=== PATIENT | female | born 1970 | race Caucasian/White ===

== ENCOUNTER 2016-11-29 12:42 | Observation (INO) | payer OTHER ==
[2016-11-29] MEDS ORDERED: Zofran 4 MG/2 ML VIAL IV PRN (13:47)
[2016-11-29] MEDS ORDERED: TYLENOL 325 MG PO PRN (13:48)
--- NOTE | 2016-11-29 14:31 | XRAY ---
Indication: Cough. Infection. Comparison: May 10, 2012. PA/lateral chest again demonstrates normal heart and lungs. Bony thorax intact again with minimal degenerative changes and minimal scoliosis. Impression: Stable nonacute chest.
--- NOTE | 2016-11-29 14:34 | XRAY ---
Indication: Upset stomach. Nausea and vomiting. Multiple contiguous axial images obtained through the abdomen and pelvis without contrast as ordered. Comparison: November 29, 2011. Lung bases demonstrates minimal inferior lingular and right posterior gutter fibrosis/scarring. Lung bases otherwise clear. Heart is not enlarged. Noncontrasted stomach and bowel loops appear nonobstructed. Minimal sigmoid diverticulosis. Normal appendix. No free fluid/air. Again moderate-sized fatty umbilical hernia slightly more enlarged today. Both kidneys now mild/moderately hydronephrotic with interval enlarging extrarenal pelvis bilaterally. Right renal extrarenal pelvis today measures 5.1 cm in greatest axial dimension, previously 3.5 cm. The left measures 3.1 cm, previously 2.4 cm. No renal calculus or perinephric fluid/stranding. Both ureters are normal course and caliber. Gallbladder contracted without gallstones. Remaining liver, pancreas, spleen, adrenal glands, kidneys, bladder, and uterus appear unremarkable for noncontrast exam. Minimal aortoiliac calcifications without AAA. Osseous structures intact again with minimal degenerative changes throughout the spine. Impression: 1. Hydronephrotic kidneys with interval enlarging extrarenal pelvis bilaterally. No renal calculus. Retrograde pyelogram may yield further information if clinically warranted. 2. Sigmoid diverticulosis without diverticulitis. 2. Interval enlarging fatty umbilical hernia. CT DI 22.37
[2016-11-29 14:40] LABS: Mean Cell Volume 90.9 fl (78-100); Mean Corpuscular Hemoglobin 29.9 pg (26-32); Mean Platelet Volume 10.9 fl (6-9.5); Platelet Count 220 K/mm3 (150-450); Red Blood Count 4.82 M/mm3 (4.1-5.4); White Blood Count 7.5 K/mm3 (4.0-10.5)
[2016-11-29] MEDS: Dextrose 5% -0.45 NaCl 1000 ML 1,000 ML IV SCH (14:51)
[2016-11-29] MEDS: PROTONIX 40 MG IV IV SCH (14:52)
[2016-11-29 14:55] LABS: MAGNESIUM 2.1 mg/dL (1.8-2.4)
[2016-11-29 14:58] LABS: ALBUMIN 3.5 g/dL (3.4-5.0); ALKALINE PHOSPHATASE 80 U/L (46-116); ANION GAP 12.8 MEQ/L (5-15); BILIRUBIN,TOTAL 0.6 mg/dL (0.2-1.0); BLOOD UREA NITROGEN 6 mg/dL (9-20); CHLORIDE 108 mEq/L (98-107); Glucose 83 MG/DL (70-110); Potassium 3.6 mEq/L (3.5-5.1); SGOT/AST 15 U/L (15-37); SGPT/ALT 26 U/L (12-78); SODIUM 142 mEq/L (136-145); Total Protein 6.4 gm/dL (6.4-8.2)
[2016-11-29 17:35] LABS: Collection Type CCMS
[2016-11-29 17:36] LABS: COMPLETE URINE MICROSCOPIC? YES; Epithelial Cells RARE /HPF (FEW)
[2016-11-30] MEDS: Dextrose 5% -0.45 NaCl 1000 ML 1,000 ML IV SCH ×2 (00:41→11:00)
--- NOTE | 2016-11-30 08:30 | PCM.NOTE ---
Date and Time: 11/30/16814 Subjective Assessment: still abdominal pain - Review of Systems Constitutional: No Fever, No Chills Eyes: No Symptoms Ears, Nose, & Throat: No Symptoms Respiratory: No Cough, No Short Of Breath Cardiac: No Chest Pain, No Edema, No Syncope Abdominal/Gastrointestinal: Abdominal Pain, No Nausea, No Vomiting, No Diarrhea Genitourinary Symptoms: No Dysuria Musculoskeletal: No Back Pain, No Neck Pain Skin: No Rash Neurological: No Dizziness, No Focal Weakness, No Sensory Changes Psychological: No Symptoms Endocrine: No Symptoms Hematologic/Lymphatic: No Symptoms Immunological/Allergic: No Symptoms Objective Exam General Appearance: no apparent distress, alert Neurologic Exam: alert, oriented x 3, cooperative, normal mood/affect, nml cerebellar function, sensation nml, No motor deficits Skin Exam: normal color, warm, dry Eye Exam: PERRL, EOMI, eyes nml inspection Ears, Nose, Throat Exam: normal ENT inspection, pharynx normal, moist mucous membranes Neck Exam: normal inspection, non-tender, supple, full range of motion Respiratory Exam: normal breath sounds, lungs clear, No respiratory distress Cardiovascular Exam: regular rate/rhythm, normal heart sounds Gastrointestinal/Abdomen Exam: soft, tenderness, No mass Extremity Exam: normal inspection, normal range of motion Back Exam: normal inspection, normal range of motion, No CVA tenderness, No vertebral tenderness Pelvic Exam: deferred Rectal Exam: deferred OBJECTIVE DATA Vital Signs: Vital Signs - 24 hr Temp Pulse Resp BP Pulse Ox 11/30/16 07:53 98.4 F 72 18 134/65 96 11/30/16 04:00 97.9 F 78 19 107/60 95 11/30/16 00:00 98.0 F 74 18 121/67 97 11/29/16 21:00 98.2 F 76 18 147/78 96 11/29/16 16:30 98.1 F 68 20 132/66 99 11/29/16 14:12 98.1 F 75 20 172/82 97 11/29/16 13:22 98.1 F 75 20 172/82 97 Pain Assessment - Last Documented Pain Intensity 7 Pain Scale Used [facility] Intake and Output: Intake & Output 11/27/16 11/28/16 11/29/16 11/30/16 11:59 11:59 11:59 11:59 Intake Total 2439 Output Total 1400 Balance 1039 Weight 73.074 kg Lab Results: Lab Results-Last 24 Hours 11/29/16 11/29/16 11/29/16 Range/Units 14:15 14:15 14:15 WBC 7.5 (4.0-10.5) K/mm3 RBC 4.82 (4.1-5.4) M/mm3 Hgb 14.4 (12.0-16.0) gm/dl Hct 43.8 (35-47) % MCV 90.9 (78-100) fl MCH 29.9 (26-32) pg MCHC 32.9 (32-36) g/dl RDW 13.0 (11.5-14.0) % Plt Count 220 (150-450) K/mm3 MPV 10.9 H (6-9.5) fl Sodium 142 (136-145) mEq/L Potassium 3.6 (3.5-5.1) mEq/L Chloride 108 H (98-107) mEq/L Carbon Dioxide 25.0 (21-32) mEq/L Anion Gap 12.8 (5-15) MEQ/L BUN 6 L (9-20) mg/dL Creatinine 0.83 (0.55-1.30) mg/dl Estimated GFR > 60 ML/MIN Glucose 83 (70-110) MG/DL Calcium 9.0 (8.5-10.1) mg/dL Magnesium 2.1 (1.8-2.4) mg/dL Total Bilirubin 0.6 (0.2-1.0) mg/dL AST 15 (15-37) U/L ALT 26 (12-78) U/L Alkaline Phosphatase 80 (46-116) U/L Troponin I (0.000-0.056) ng/ml Serum Total Protein 6.4 (6.4-8.2) gm/dL Albumin 3.5 (3.4-5.0) g/dL Lipase 140 (73-393) U/L Ur Collection Type Urine Color (YELLOW) Urine Appearance (CLEAR) Urine pH (5-6) Ur Specific [place] (1.005-1.025) Urine Protein (Negative) Urine Glucose (UA) (NEGATIVE) mg/dL Urine Ketones (NEGATIVE) Urine Nitrite (NEGATIVE) Urine Bilirubin (NEGATIVE) Urine Urobilinogen (0-1) mg/dL Urine WBC (Auto) (NEGATIVE) Urine RBC (Auto) (0-5) Silvino/ul Urine Microscopic RBC (0-2) /HPF Ur Epithelial Cells (FEW) /HPF Stl C. diff Tox B Gene (NEGATIVE) C.difficile 027-NAP1-B1 (NEGATIVE) Specimen Received 11/29/16 11/29/16 11/29/16 Range/Units 14:15 16:51 21:30 WBC (4.0-10.5) K/mm3 RBC (4.1-5.4) M/mm3 Hgb (12.0-16.0) gm/dl Hct (35-47) % MCV (78-100) fl MCH (26-32) pg MCHC (32-36) g/dl RDW (11.5-14.0) % Plt Count (150-450) K/mm3 MPV (6-9.5) fl Sodium (136-145) mEq/L Potassium (3.5-5.1) mEq/L Chloride (98-107) mEq/L Carbon Dioxide (21-32) mEq/L Anion Gap (5-15) MEQ/L BUN (9-20) mg/dL Creatinine (0.55-1.30) mg/dl Estimated GFR ML/MIN Glucose (70-110) MG/DL Calcium (8.5-10.1) mg/dL Magnesium (1.8-2.4) mg/dL Total Bilirubin (0.2-1.0) mg/dL AST (15-37) U/L ALT (12-78) U/L Alkaline Phosphatase (46-116) U/L Troponin I < 0.017 (0.000-0.056) ng/ml Serum Total Protein (6.4-8.2) gm/dL Albumin (3.4-5.0) g/dL Lipase (73-393) U/L Ur Collection Type CCMS Urine Color YELLOW (YELLOW) Urine Appearance CLEAR (CLEAR) Urine pH 7.0 (5-6) Ur Specific [place] 1.010 (1.005-1.025) Urine Protein NEGATIVE (Negative) Urine Glucose (UA) NEGATIVE (NEGATIVE) mg/dL Urine Ketones NEGATIVE (NEGATIVE) Urine Nitrite NEGATIVE (NEGATIVE) Urine Bilirubin NEGATIVE (NEGATIVE) Urine Urobilinogen 0.2 (0-1) mg/dL Urine WBC (Auto) NEGATIVE (NEGATIVE) Urine RBC (Auto) SMALL (0-5) Silvino/ul Urine Microscopic RBC 0-2 (0-2) /HPF Ur Epithelial Cells RARE (FEW) /HPF Stl C. diff Tox B Gene NEGATIVE (NEGATIVE) C.difficile 027-NAP1-B1 PRESUMPTIVE NEGATIVE (NEGATIVE) Specimen Received 11-29-16 9225 Radiology Exams: Radiology Procedures Category Date Time Status ABDOMEN AND PELVIS W/0 CONTRAS [CT] Urgent Exams 11/29/16 13:45 Completed CHEST 2 VIEWS (PA AND LAT) Urgent Exams 11/29/16 13:42 Completed Assessment/Plan (1) Abdominal pain Current Visit: Yes Status: Acute Qualifiers: Abdominal location: generalized Qualified Code(s): R10.84 - Generalized abdominal pain Code(s): R10.9 - UNSPECIFIED ABDOMINAL PAIN (2) Hydronephrosis Current Visit: Yes Status: Acute Qualifiers: Hydronephrosis type: unspecified Qualified Code(s): N13.30 - Unspecified hydronephrosis Code(s): N13.30 - UNSPECIFIED HYDRONEPHROSIS
[2016-11-30] MEDS ORDERED: Zestril 20 MG PO SCH (10:00)
[2016-11-30] MEDS: PROTONIX 40 MG IV IV SCH (10:29)
[2016-11-30 11:57] VITALS: BP 114/59; O2SAT 97
[2016-11-30 12:02] VITALS: PULSE 53
[2016-12-01] MEDS ORDERED: Protonix 40MG Tablet PO SCH (10:00)
[2016-12-01] MEDS ORDERED: Ecotrin 325 MG PO SCH (10:00)
[2016-12-01] MEDS ORDERED: NON-FORMULARY ITEM (Omeprazole 20 Mg [Prilosec 20 Mg] 20 MG) PO SCH (10:00)
[2016-12-01 15:25] LABS: Giardia Antigen EIA Negative (Negative)
== END 2016-11-30 15:15 | disposition home or self-care (01) ==
LOC: MED SURG 12:42
PROVIDERS: ADMIT General Practice; ATTEND General Practice
DX: N13.30 Unspecified hydronephrosis (principal); R10.84 Generalized abdominal pain; I11.0 Hypertensive heart disease with heart failure; I50.9 Heart failure, unspecified; E66.8 Other obesity; M25.50 Pain in unspecified joint; E78.5 Hyperlipidemia, unspecified; E11.9 Type 2 diabetes mellitus without complications; Z79.899 Other long term (current) drug therapy
CPT/HCPCS: 36415; 71020; 74176; 80053; 81000; 83690; 83735; 84484; 85027; 87045; 87046; 87177; 87209; 87335; 87493; 93005; G0378; A9270-GY

== ENCOUNTER 2017-01-13 07:36 | Emergency (ER) | payer OTHER ==
[2017-01-13 07:49] VITALS: O2SAT 98
--- NOTE | 2017-01-13 07:59 | ERPHSYRPT ---
- History of Present Illness Time Seen by Provider: 01/13/17 07:44 Historian: patient Exam Limitations: no limitations Patient Subjective Stated Complaint: rt abd pain sicne 629 Triage Nursing Assessment: sudden onset of rt abd pain with nausea since 629. no oral intake today--cheeseburger and fries last night. normal bm this am. denies pain with urination. skin warma dn dry Physician History: Pt. with previous admission in 11/22 for abdominal pain, vomiting and diarrhea. Had CT at that time and showed R hydronephrosis, otherwise essentially normal. Had pyelogram later that was normal. Today began having RLQ pain while at work at 7AM, while sitting. Pain is sharp, intermittent lasts about 1 min. along ith nausea, but not vomiting, diarrhea, fever or chills. No back pain, urinary symptoms, no hematuria, frequency or dysuria. States pain was 8/10 but now 0/ 10. Eating well otherwise and no recent illnesses. Timing/Duration: today Activities at Onset: rest Quality: sharpness Abdominal Pain Onset Location: RLQ Pain Radiation: no radiation Severity of Pain-Max: moderate Severity of Pain-Current: none Modifying Factors: Improves With: nothing Associated Symptoms: nausea, other (headache) Previous symptoms: recently treated Allergies/Adverse Reactions: amoxicillin [From Augmentin] Allergy (Verified 01/13/17 07:49) clavulanic acid [From Augmentin] Allergy (Verified 01/13/17 07:49) metronidazole [From Flagyl] Allergy (Verified 01/13/17 07:49) tetracycline Allergy (Verified 01/13/17 07:49) Home Medications: Aspirin EC 325 mg [Ecotrin 325 MG] 325 mg PO DAILY 11/29/16 [History] Lisinopril 20 mg [Zestril 20 MG] 20 mg PO DAILY 11/29/16 [History] Omeprazole 20 MG [Prilosec 20 mg] 20 mg PO DAILY 11/29/16 [History] Hx Tetanus, Diphtheria Vaccination/Date Given: Yes Hx Influenza Vaccination/Date Given: No Hx Pneumococcal Vaccination/Date Given: No Immunizations Up to Date: Yes - Review of Systems Constitutional: No Fever, No Chills Eyes: No Symptoms Ears, Nose, & Throat: No Symptoms Respiratory: No Cough, No Dyspnea Cardiac: No Chest Pain, No Edema, No Syncope Abdominal/Gastrointestinal: Abdominal Pain, Nausea, No Vomiting, No Diarrhea Genitourinary Symptoms: No Dysuria Musculoskeletal: No Back Pain, No Neck Pain Skin: No Rash Neurological: No Dizziness, No Focal Weakness, No Sensory Changes Psychological: No Symptoms Endocrine: No Symptoms All Other Systems: Reviewed and Negative - Past Medical History Pertinent Past Medical History: Yes Neurological History: No Pertinent History ENT History: No Pertinent History Cardiac History: Arrhythmia, Hypertension Respiratory History: No Pertinent History Endocrine Medical History: No Pertinent History Musculoskeletal History: Arthritis GI Medical History: GERD History: No Pertinent History Psycho-Social History: No Pertinent History Female Reproductive Disorders: No Pertinent History - Past Surgical History Past Surgical History: Yes Neuro Surgical History: No Pertinent History Cardiac: No Pertinent History Respiratory: No Pertinent History Gastrointestinal: No Pertinent History Female Surgical History: Section, Tubal Ligation Other Surgical History: THERMABLASION - Social History Smoking Status: Current every day smoker How long have you smoked: 25 YEARS Exposure to second hand smoke: No Drug Use: none Patient Lives Alone: No - Nursing Vital Signs Nursing Vital Signs: Initial Vital Signs Temperature 98.1 F Temperature Source Oral Pulse Rate 62 Respiratory Rate 18 Blood Pressure [Right Arm] 120/76 Pain Intensity 0 - Physical Exam General Appearance: no apparent distress, alert Eye Exam: PERRL/EOMI, eyes nml inspection Ears, Nose, Throat Exam: normal ENT inspection, pharynx normal, moist mucous membranes Neck Exam: normal inspection, non-tender, supple, full range of motion Respiratory Exam: normal breath sounds, lungs clear, No respiratory distress Cardiovascular Exam: regular rate/rhythm, normal heart sounds Gastrointestinal/Abdomen Exam: soft, normal bowel sounds, tenderness (RLQ), No mass, No rebound, No organomegaly, No splenomegaly Back Exam: normal inspection, normal range of motion, No CVA tenderness, No vertebral tenderness Extremity Exam: normal inspection, normal range of motion, pelvis stable Neurologic Exam: alert, oriented x 3, cooperative, normal mood/affect, nml cerebellar function, sensation nml, No motor deficits Skin Exam: normal color, warm, dry SpO2: 98 Oxygen Delivery: Room Air - Course Nursing assessment & vital signs reviewed: Yes - Radiology Exams Abdomen X-ray Interpretation: Teleradiologist Report, Other (Bilat hydronephrosis similar to previous abd CT on 11/22. No other intraabd pathology noted.) Ordered Tests: Active Orders 24 hr Category Date Time Status IV Insertion STAT Care 01/13/17 08:03 Active ABDOMEN AND PELVIS W/0 CONTRAS [CT] Stat Exams 01/13/17 08:05 Taken AMYLASE Stat Lab 01/13/17 08:12 Completed CBC W DIFF Stat Lab 01/13/17 08:12 Completed CMP Stat Lab 01/13/17 08:12 Completed CULTURE,URINE Stat Lab 01/13/17 08:12 Received LIPASE Stat Lab 01/13/17 08:12 Completed UA W/ MICROSCOPIC Stat Lab 01/13/17 08:12 Completed Medication Summary Discontinued Medications Generic Name Dose Route Start Last Admin Trade Name Freq PRN Reason Stop Dose Admin Ondansetron HCl 4 mg 01/13/17 08:03 01/13/17 08:17 Zofran 4 Mg/2 Ml Vial IV 01/13/17 08:04 4 mg STAT ONE Administration Ondansetron HCl Confirm 01/13/17 08:16 Zofran 4 Mg/2 Ml Vial Administered 01/13/17 08:17 Dose 4 mg .ROUTE .STK-MED ONE Lab/Rad Data: Laboratory Result Diagrams 01/13/17 08:12 01/13/17 08:12 Laboratory Results 01/13/17 01/13/17 01/13/17 Range/Units 08:12 08:12 08:12 WBC 6.1 (4.0-10.5) K/mm3 RBC 4.83 (4.1-5.4) M/mm3 Hgb 14.5 (12.0-16.0) gm/dl Hct 43.7 (35-47) % MCV 90.5 (78-100) fl MCH 30.0 (26-32) pg MCHC 33.2 (32-36) g/dl RDW 13.0 (11.5-14.0) % Plt Count 204 (150-450) K/mm3 MPV 11.0 H (6-9.5) fl Gran % 57.6 (36.0-66.0) % Lymphocytes % 30.2 (24.0-44.0) % Monocytes % 9.9 (0.0-12.0) % Eosinophils % 2.0 (0.00-5.0) % Basophils % 0.3 (0.0-0.4) % Basophils # 0.02 (0-0.4) Sodium 142 (136-145) mEq/L Potassium 3.9 (3.5-5.1) mEq/L Chloride 107 (98-107) mEq/L Carbon Dioxide 25.3 (21-32) mEq/L Anion Gap 13.3 (5-15) MEQ/L BUN 10 (9-20) mg/dL Creatinine 0.91 (0.55-1.30) mg/dl Estimated GFR > 60 ML/MIN Glucose 89 (70-110) MG/DL Calcium 9.2 (8.5-10.1) mg/dL Total Bilirubin 1.10 H (0.2-1.0) mg/dL AST 17 (15-37) U/L ALT 23 (12-78) U/L Alkaline Phosphatase 67 (46-116) U/L Serum Total Protein 7.2 (6.4-8.2) gm/dL Albumin 3.3 L (3.4-5.0) g/dL Amylase 54 (25-115) U/L Lipase 136 (73-393) U/L Ur Collection Type CLEAN CATCH Urine Color YELLOW (YELLOW) Urine Appearance CLEAR (CLEAR) Urine pH 6.0 (5-6) Ur Specific [place] 1.020 (1.005-1.025) Urine Protein NEGATIVE (Negative) Urine Glucose (UA) 100 (NEGATIVE) mg/dL Urine Ketones SMALL (NEGATIVE) Urine Nitrite NEGATIVE (NEGATIVE) Urine Bilirubin SMALL (NEGATIVE) Urine Urobilinogen 0.2 (0-1) mg/dL Urine WBC (Auto) TRACE (NEGATIVE) Urine RBC (Auto) MODERATE (0-5) Silvino/ul Urine Microscopic RBC 2-5 (0-2) /HPF Urine Microscopic WBC 2-5 (0-5) /HPF Ur Epithelial Cells MODERATE (FEW) /HPF Urine Bacteria MODERATE (NEGATIVE) /HPF Urine Mucus MODERATE (NEGATIVE) /HPF Specimen Received 01-13 0800 - Progress Progress: improved Progress Note: 01/13/17 08:58 Pt. given Zofran with some relief of nausea Counseled pt/family regarding: lab results, diagnosis, rad results - Departure Time of Disposition: 08:59 Departure Disposition: Home Clinical Impression: UTI (urinary tract infection) Condition: Stable Critical Care Time: No Instructions: Abdominal Pain-Adult, Urinary Tract Infection (UTI) Additional Instructions: RX: Cipro Drink plenty of fluids Return for worse abdominal pain, fever, vomiting or any problems. Prescriptions: Ciprofloxacin [Cipro 500 MG] 500 mg PO BID #10 tablet Promethazine HCl 25 mg [Phenergan 25 mg] 25 mg PO Q6-8HPRN #10 tablet
[2017-01-13] MEDS ORDERED: Zofran 4 MG/2 ML VIAL IV ONE (08:03)
[2017-01-13 08:15] LABS: BASOPHIL % 0.3 % (0.0-0.4); Granulocytes % 57.6 % (36.0-66.0); Lymphocytes % 30.2 % (24.0-44.0); Mean Cell Volume 90.5 fl (78-100); Monocytes % 9.9 % (0.0-12.0); Platelet Count 204 K/mm3 (150-450); Red Blood Count 4.83 M/mm3 (4.1-5.4); White Blood Count 6.1 K/mm3 (4.0-10.5)
[2017-01-13 08:16] LABS: Collection Type CLEAN CATCH
[2017-01-13] MEDS ORDERED: Zofran 4 MG/2 ML VIAL ONE (08:16)
[2017-01-13 08:17] LABS: COMPLETE URINE MICROSCOPIC? YES
[2017-01-13 08:33] LABS: Bacteria MODERATE /HPF (NEGATIVE); Epithelial Cells MODERATE /HPF (FEW); Mucus MODERATE /HPF (NEGATIVE)
[2017-01-13 08:36] LABS: ADD URINE CULTURE? YES (NO)
[2017-01-13 08:37] LABS: ALBUMIN 3.3 g/dL (3.4-5.0); ALKALINE PHOSPHATASE 67 U/L (46-116); ANION GAP 13.3 MEQ/L (5-15); BLOOD UREA NITROGEN 10 mg/dL (9-20); CHLORIDE 107 mEq/L (98-107); Carbon Dioxide 25.3 mEq/L (21-32); Glucose 89 MG/DL (70-110); LIPASE 136 U/L (73-393); Potassium 3.9 mEq/L (3.5-5.1); SGOT/AST 17 U/L (15-37); SGPT/ALT 23 U/L (12-78); SODIUM 142 mEq/L (136-145); Total Protein 7.2 gm/dL (6.4-8.2)
--- NOTE | 2017-01-13 08:59 | XRAY ---
Indication: Right upper quadrant abdominal pain. Nausea. Multiple contiguous axial images obtained through the abdomen and pelvis without contrast as ordered. Comparison: November 29, 2016. Lung bases essentially clear. Heart is not enlarged. Noncontrasted stomach and bowel loops appear nonobstructed again with minimal sigmoid diverticulosis. Normal appendix. No free fluid/air. Stable moderate-sized fatty umbilical hernia. Both kidneys remain mild/moderately hydronephrotic with extrarenal pelvis bilaterally. Again no renal calculus or perinephric fluid/stranding. Both ureters are normal course and caliber. Remaining liver, gallbladder, pancreas, spleen, adrenal glands, kidneys, bladder, and uterus appear unremarkable for noncontrast exam. Again minimal aortoiliac calcifications without AAA. Osseous structures intact again with minimal degenerative changes throughout the spine. Impression: 1. Stable hydronephrotic kidneys with extrarenal pelvis bilaterally. No renal calculus. Retrograde pyelogram may yield further information if clinically warranted. 2. Stable sigmoid diverticulosis without diverticulitis and fatty umbilical hernia. 3. No new or acute intra-abdominal/pelvic abnormalities on this noncontrast exam. CT DI 23.51
[2017-01-13 09:17] VITALS: BP 104/90; PULSE 66
== END 2017-01-13 09:18 | disposition home or self-care (01) ==
LOC: ED 07:36
DX: N39.0 Urinary tract infection, site not specified (principal); R10.9 Unspecified abdominal pain; R19.7 Diarrhea, unspecified; R11.2 Nausea with vomiting, unspecified; R51 Headache; I10 Essential (primary) hypertension
CPT/HCPCS: 36000; 36415; 74176; 80053; 81000; 82150; 83690; 85025; 87086; 96374; 99284; J2405

== ENCOUNTER 2017-09-18 07:57 | Emergency (ER) | payer OTHER ==
[2017-09-18] MEDS ORDERED: DUONEB 0.5-3 MG/3 ml Neb IH ONE ×2 (08:19→08:36)
--- NOTE | 2017-09-18 08:24 | ERPHSYRPT ---
- History of Present Illness Time Seen by Provider: 09/18/17 08:14 Source: patient Exam Limitations: no limitations Patient Subjective Stated Complaint: pt states she began having a cough that started on 09/17/17. states her and son have been sick. Triage Nursing Assessment: pt pink, warm, dry. lung sounds clear and equal. dry cough noted. Physician History: This is a 47-year-old white female she arrives with complaint of cough and runny nose headache general leg symptoms since yesterday. Patient states her and son have similar symptoms. Past medical history includes arrhythmia, high blood pressure, arthritis, GERD. Past surgical history includes , tubal ligation, thermal ablation. Timing/Duration: yesterday Severity: moderate Modifying Factors: Improves With: nothing Associated Symptoms: cough, malaise, other (runny nose general aches), No nausea , No vomiting, No abdominal pain, No shortness of breath, No heartburn, No diaphoresis, No chills, No chest pain, No fever, No headaches, No loss of appetite, No rash, No syncope, No seizure, No weakness Allergies/Adverse Reactions: amoxicillin [From Augmentin] Allergy (Verified 09/18/17 08:12) clavulanic acid [From Augmentin] Allergy (Verified 09/18/17 08:12) metronidazole [From Flagyl] Allergy (Verified 09/18/17 08:12) tetracycline Allergy (Verified 09/18/17 08:12) Home Medications: Lisinopril 20 mg [Zestril 20 MG] 20 mg PO DAILY 11/29/16 [History] Omeprazole 20 MG [Prilosec 20 mg] 20 mg PO DAILY 11/29/16 [History] Hx Tetanus, Diphtheria Vaccination/Date Given: Yes Hx Influenza Vaccination/Date Given: No Hx Pneumococcal Vaccination/Date Given: No Immunizations Up to Date: Yes - Review of Systems Constitutional: Malaise, No Fever, No Chills, No Fatigue, No Lethargy, No Night Sweats, No Weakness, No Weight Loss Eyes: No Symptoms Ears, Nose, & Throat: Ear Pain, Nose Congestion, Nose Discharge, No Ear Discharge, No Hearing Changes, No Tinnitus, No Nose Pain, No Sinus Drainage, No Epistaxis, No Mouth Pain, No Mouth Swelling, No Loose Teeth, No Throat Pain, No Throat Swelling, No Hoarse, No Painful Swallowing, No Snoring, No Stridor Respiratory: Cough, No Cyanosis, No Dyspnea, No Dyspnea on Exertion (SAHNI), No Stridor, No Wheezing Cardiac: No Symptoms Abdominal/Gastrointestinal: No Abdominal Pain, No Nausea, No Vomiting, No Diarrhea Genitourinary Symptoms: No Dysuria Musculoskeletal: No Back Pain, No Neck Pain Skin: No Rash Neurological: No Dizziness, No Focal Weakness, No Sensory Changes Psychological: No Symptoms Endocrine: No Symptoms All Other Systems: Reviewed and Negative - Past Medical History Pertinent Past Medical History: Yes Neurological History: No Pertinent History ENT History: No Pertinent History Cardiac History: High Cholesterol Respiratory History: No Pertinent History Endocrine Medical History: No Pertinent History Musculoskeletal History: Arthritis GI Medical History: GERD History: No Pertinent History Psycho-Social History: No Pertinent History Female Reproductive Disorders: No Pertinent History - Past Surgical History Past Surgical History: Yes Neuro Surgical History: No Pertinent History Cardiac: No Pertinent History Respiratory: No Pertinent History Gastrointestinal: No Pertinent History Female Surgical History: Section Other Surgical History: uterine ablation - Social History Smoking Status: Current every day smoker How long have you smoked: 25 Exposure to second hand smoke: No Drug Use: none Patient Lives Alone: No - Female History Hx Now: No - Nursing Vital Signs Nursing Vital Signs: Initial Vital Signs Temperature 100.0 F 09/18/17 08:08 Pulse Rate 101 H 09/18/17 08:08 Respiratory Rate 20 09/18/17 08:08 Blood Pressure 128/95 09/18/17 08:08 O2 Sat by Pulse Oximetry 97 09/18/17 08:08 Pain Scale Pain Intensity 0 - Physical Exam General Appearance: mild distress Eye Exam: PERRL/EOMI, eyes nml inspection Ears, Nose, Throat Exam: normal ENT inspection, TMs normal, pharynx normal, moist mucous membranes Neck Exam: normal inspection, non-tender, supple, full range of motion Respiratory Exam: wheezing (occasional wheeze), No chest tenderness, No respiratory distress, No diminished breath sounds Cardiovascular Exam: regular rate/rhythm, normal heart sounds, normal peripheral pulses Gastrointestinal/Abdomen Exam: soft, normal bowel sounds, No tenderness, No mass Back Exam: normal inspection, normal range of motion, No CVA tenderness, No vertebral tenderness Extremity Exam: normal inspection, normal range of motion, pelvis stable Neurologic Exam: alert, oriented x 3, cooperative, normal mood/affect, nml cerebellar function, nml station & gait, sensation nml, No motor deficits Skin Exam: normal color, warm, dry, No rash Lymphatic Exam: No adenopathy SpO2 Interpretation: normal (97%) SpO2: 97 Oxygen Delivery: Room Air - Course Nursing assessment & vital signs reviewed: Yes - Radiology Exams Chest X-ray Interpretation: Discussed w/ radiologist, Other (no acute disease process noted) Ordered Tests: Active Orders 24 hr Category Date Time Status CHEST 1 VIEW (PORTABLE) Stat Exams 09/18/17 08:20 Completed Respiratory Nebulizer STAT RT 09/18/17 08:20 Completed Medication Summary Discontinued Medications Generic Name Dose Route Start Last Admin Trade Name Freq PRN Reason Stop Dose Admin Acetaminophen 650 mg 09/18/17 08:46 09/18/17 08:49 Tylenol 325 Mg PO 09/18/17 08:47 650 mg STAT STA Administration Acetaminophen Confirm 09/18/17 08:47 Tylenol 325 Mg Administered 09/18/17 08:48 Dose 650 mg .ROUTE .STK-MED ONE Albuterol/Ipratropium 3 ml 09/18/17 08:19 09/18/17 08:30 Duoneb 0.5-3 Mg/3 Ml Neb IH 09/18/17 08:20 3 ml STAT ONE Administration Albuterol/Ipratropium Confirm 09/18/17 08:36 Duoneb 0.5-3 Mg/3 Ml Neb Administered 09/18/17 08:37 Dose 3 ml IH .STK-MED ONE Lab/Rad Data: Laboratory Results 09/18/17 Range/Units 08:30 Influenza A (RT-PCR) NEGATIVE (NEGATIVE) Influenza B (RT-PCR) NEGATIVE (NEGATIVE) - Progress Progress: improved Progress Note: 09/18/17 09:43 Patient's lungs are clear after DuoNeb treatment. Chest x-ray unremarkable. Flu swab is negative. Will discharge on Zithromax, prednisone taper, albuterol inhaler. - Departure Time of Disposition: 09:44 Departure Disposition: Home Clinical Impression: Bronchitis with bronchospasm URI (upper respiratory infection) Qualifiers: URI type: unspecified URI Qualified Code(s): J06.9 - Acute upper respiratory infection, unspecified Condition: Fair Critical Care Time: No Referrals: DONI CABRERA [Primary Care Provider] - Instructions: Cough, Adult (DC) Additional Instructions: Return home. Plenty of fluids. Zithromax Z-CHELSIE as directed. Prednisone taper as directed. Albuterol inhaler 2 puffs every 4 hours as needed. Follow-up with your family doctor if symptoms worse, no better in 48 hours or persist longer 72 hours. Return for acute distress or for severe symptoms. Tylenol every 4 hours as needed for temperature greater than 100.5 or pain. Prescriptions: Albuterol Common Canister [Proventil Common Canister] 2 puff IH Q4-6HPRN PRN #1 canister PRN Reason: sob, wheezing Azithromycin 250 mg [Zithromax 250 MG TABLET] 0 mg PO ZPACK #6 tablet
[2017-09-18] MEDS ORDERED: TYLENOL 325 MG PO STA (08:46)
[2017-09-18] MEDS ORDERED: TYLENOL 325 MG ONE (08:47)
--- NOTE | 2017-09-18 08:59 | XRAY ---
Indication: Cough and flulike symptoms. Comparison: November 29, 2016. Portable chest again demonstrates normal heart and lungs with a few incidental calcified granulomas. Bony thorax intact again with minimal degenerative changes and minimal scoliosis. No new/acute findings.
[2017-09-18 10:08] VITALS: BP 108/74; PULSE 94; O2SAT 93
== END 2017-09-18 10:13 | disposition home or self-care (01) ==
LOC: ED 07:57
DX: J40 Bronchitis, not specified as acute or chronic (principal); J98.01 Acute bronchospasm; J06.9 Acute upper respiratory infection, unspecified; K21.9 Gastro-esophageal reflux disease without esophagitis; M19.90 Unspecified osteoarthritis, unspecified site; Z72.0 Tobacco use
CPT/HCPCS: 71045; 87502; 94640; 99283; A9270-GY

== ENCOUNTER 2017-10-15 17:26 | Emergency (ER) | payer OTHER | END 2017-10-15 17:50 | disposition left against medical advice (07) | LOC: ED 17:26 | DX: Z53.21 Procedure and treatment not carried out due to patient leaving prior to being seen by health care provider (principal) ==

== ENCOUNTER 2019-06-17 07:38 | Emergency (ER) | payer OTHER ==
[2019-06-17] MEDS ORDERED: DUONEB 0.5-3 MG/3 ml Neb IH ONE ×2 (07:47→08:09)
[2019-06-17] MEDS ORDERED: solu-MEDROL 125 MG IV ONE (07:47)
[2019-06-17] MEDS ORDERED: Sodium Chloride 0.9% 1000 ML 1,000 ML IV STA (07:47)
--- NOTE | 2019-06-17 07:55 | ERPHSYRPT ---
- History of Present Illness Time Seen by Provider: 06/17/19 07:46 Source: patient Exam Limitations: no limitations Patient Subjective Stated Complaint: ppatient reports that she became ill approximately one week ago with shortness of breath. She saw her primary care physician was started on Cipro 2 days ago. She denies any history of COPD of asthma but does smoke a half pack per day. Initially she felt like she had some fever now she's also developed a sore throat. She is coughing up some white frothy sputum. Side to Cipro she was also given Tessalon Perles for the cough by her PCP is Timing/Duration: week(s) (2) Activities at Onset: none Severity of Dyspnea-Max: moderate Severity of Dyspnea-Current: moderate Possible Cause: smoke exposure Modifying Factors: Improves With: nothing, other (patient has used a nebulizer at home in the past but has not needed one for years) Associated Symptoms: cough, fever, wheezing, chills, productive cough Allergies/Adverse Reactions: amoxicillin [From Augmentin] Allergy (Verified 06/17/19 07:42) clavulanic acid [From Augmentin] Allergy (Verified 06/17/19 07:42) hydrochlorothiazide Allergy (Verified 06/17/19 07:42) lisinopril Allergy (Verified 06/17/19 07:42) metronidazole [From Flagyl] Allergy (Verified 06/17/19 07:42) tetracycline Allergy (Verified 06/17/19 07:42) Home Medications: Lisinopril 20 mg [Zestril 20 MG] 20 mg PO DAILY 11/29/16 [History] Levocetirizine Dihydrochloride [Allergy Relief] 5 mg PO DAILY 06/17/19 [History] Piroxicam 1 tab PO DAILY 06/17/19 [History] Ranitidine HCl 1 tab PO BID 06/17/19 [History] Hx Tetanus, Diphtheria Vaccination/Date Given: Yes Hx Influenza Vaccination/Date Given: No Hx Pneumococcal Vaccination/Date Given: No - Review of Systems Constitutional: Fever, Chills Eyes: No Symptoms Ears, Nose, & Throat: Nose Congestion, Nose Discharge, Throat Pain Respiratory: Cough, Dyspnea, Dyspnea on Exertion (SAHNI), Wheezing (to) Cardiac: No Chest Pain, No Edema, No Syncope Abdominal/Gastrointestinal: No Abdominal Pain, No Nausea, No Vomiting, No Diarrhea Genitourinary Symptoms: No Dysuria Musculoskeletal: No Back Pain, No Neck Pain Skin: No Rash Neurological: No Dizziness, No Focal Weakness, No Sensory Changes Psychological: No Symptoms Endocrine: No Symptoms All Other Systems: Reviewed and Negative - Past Medical History Pertinent Past Medical History: Yes Neurological History: No Pertinent History ENT History: No Pertinent History Cardiac History: High Cholesterol Respiratory History: No Pertinent History Endocrine Medical History: No Pertinent History Musculoskeletal History: Arthritis GI Medical History: GERD History: No Pertinent History Psycho-Social History: No Pertinent History Female Reproductive Disorders: No Pertinent History - Past Surgical History Past Surgical History: Yes Neuro Surgical History: No Pertinent History Cardiac: No Pertinent History Respiratory: No Pertinent History Gastrointestinal: No Pertinent History Female Surgical History: Section Other Surgical History: uterine ablation - Social History Smoking Status: Current every day smoker How long have you smoked: 25 Exposure to second hand smoke: No Drug Use: none Patient Lives Alone: No - Nursing Vital Signs Nursing Vital Signs: Initial Vital Signs Temperature 97.3 F 06/17/19 07:42 Pulse Rate 81 06/17/19 07:42 Respiratory Rate 20 06/17/19 07:42 Blood Pressure 168/88 06/17/19 07:42 O2 Sat by Pulse Oximetry 100 06/17/19 07:42 Pain Scale Pain Intensity 0 - Physical Exam General Appearance: moderate distress, alert, obese Eye Exam: PERRL/EOMI Ears, Nose, Throat Exam: normal ENT inspection Neck Exam: normal inspection, supple, No Brudzinski, No Kernig's, No carotid bruit, No JVD Respiratory Exam: respiratory distress, accessory muscle use, prolonged expirations, crackles/rales, rhonchi, wheezing Cardiovascular/Chest Exam: normal heart sounds, regular rate/rhythm Abdominal/Gastrointestinal Exam: soft, No tenderness, No distention, No mass Extremity Exam: non-tender, normal range of motion, normal inspection, no calf tenderness, no pedal edema Peripheral Pulses Exam: carotid (R): 2+, carotid (L): 2+, femoral (R): 2+, femoral (L): 2+ Neurologic Exam: alert, oriented x 3, cooperative, library serials assistant II-XII nml as tested, sensation nml, No motor deficits Skin Exam: normal color, warm, No dry Lymphatic Exam: No adenopathy SpO2 Interpretation: normal SpO2: 100 O2 Delivery: Room Air - Course EKG Interpreted by Me: RATE ([id number]), Sinus Rhythm, NORMAL AXIS, NORMAL INTERVALS, NORMAL QRS, Non-specific ST Changes Ordered Tests: Active Orders 24 hr Category Date Time Status Walking Dragline Operator STAT Care 06/17/19 07:48 Active EKG-ER Only STAT Care 06/17/19 07:47 Active IV Insertion STAT Care 06/17/19 07:47 Active Pulse Oximetry (ED) STAT Care 06/17/19 07:47 Active CHEST 1 VIEW (PORTABLE) Stat Exams 06/17/19 08:06 Completed CBC W DIFF Stat Lab 06/17/19 08:02 Completed CMP Stat Lab 06/17/19 08:02 Completed D-DIMER QUANTITATION Stat Lab 06/17/19 08:02 Completed Lactic Acid Stat Lab 06/17/19 07:55 Results TROPONIN Q3H Lab 06/17/19 08:02 Completed TROPONIN Q3H Lab 06/17/19 11:00 Ordered TROPONIN Q3H Lab 06/17/19 14:00 Ordered TROPONIN Q3H Lab 06/17/19 17:00 Ordered TROPONIN Q3H Lab 06/17/19 20:00 Ordered Peak Expiratory Flow Rate ONCE RT 06/17/19 07:47 Active Respiratory Therapy Assessment DAILY RT 06/17/19 08:13 Active Medication Summary Discontinued Medications Generic Name Dose Route Start Last Admin Trade Name Freq PRN Reason Stop Dose Admin Albuterol/Ipratropium 3 ml 06/17/19 07:47 06/17/19 08:10 Duoneb 0.5-3 Mg/3 Ml Neb IH 06/17/19 07:48 3 ml STAT ONE Administration Albuterol/Ipratropium Confirm 06/17/19 08:09 Duoneb 0.5-3 Mg/3 Ml Neb Administered 06/17/19 08:10 Dose 3 ml IH .STK-MED ONE Sodium Chloride 1,000 mls @ 999 mls/hr 06/17/19 07:47 06/17/19 09:14 Sodium Chloride 0.9% 1000 Ml IV 06/17/19 08:47 Infused .Q1H1M STA Infusion Sodium Chloride Confirm 06/17/19 07:57 Sodium Chloride 0.9% 1000 Ml Administered 06/17/19 07:58 Dose 1,000 mls @ ud .ROUTE .STK-MED ONE Ceftriaxone Sodium/Dextrose 1 g in 50 mls @ 100 mls/hr 06/17/19 08:29 09:13 Rocephin 1 Gm-D5w 50 Ml Bag IV 06/17/19 08:58 Infused STAT STA Infusion Ceftriaxone Sodium/Dextrose Confirm 06/17/19 08:33 Rocephin 1 Gm-D5w 50 Ml Bag Administered 06/17/19 08:34 Dose 1 g in 50 mls @ ud IV .STK-MED ONE Methylprednisolone Sodium Succinate 125 mg 06/17/19 07:47 06/17/19 08:02 Solu-Medrol 125 Mg IV 06/17/19 07:48 125 mg STAT ONE Administration Methylprednisolone Sodium Succinate Confirm 06/17/19 07:57 Solu-Medrol 125 Mg Administered 06/17/19 07:58 Dose 125 mg .ROUTE .STK-MED ONE Lab/Rad Data: Laboratory Result Diagrams 06/17/19 08:02 06/17/19 08:02 Laboratory Results 06/17/19 06/17/19 06/17/19 Range/Units 08:02 08:02 08:02 WBC (4.0-10.5) K/mm3 RBC (4.1-5.4) M/mm3 Hgb (12.0-16.0) gm/dl Hct (35-47) % MCV (78-100) fl MCH (26-32) pg MCHC (32-36) g/dl RDW (11.5-14.0) % Plt Count (150-450) K/mm3 MPV (6-9.5) fl Gran % (36.0-66.0) % Eos # (Auto) (0-0.5) Absolute Lymphs (auto) (1.0-4.6) Absolute Monos (auto) (0.0-1.3) Lymphocytes % (24.0-44.0) % Monocytes % (0.0-12.0) % Eosinophils % (0.00-5.0) % Basophils % (0.0-0.4) % Absolute Granulocytes (1.4-6.9) Basophils # (0-0.4) D-Dimer 497 (215-500) ng/mL Sodium (137-145) mmol/L Potassium (3.5-5.1) mmol/L Chloride (98-107) mmol/L Carbon Dioxide (22-30) mmol/L Anion Gap (5-15) MEQ/L BUN (7-17) mg/dL Creatinine (0.52-1.04) mg/dL Estimated GFR ML/MIN Glucose (74-106) mg/dL Lactic Acid (0.4-2.0) Calcium (8.4-10.2) mg/dL Total Bilirubin (0.2-1.3) mg/dL AST (14-36) U/L ALT (0-35) U/L Alkaline Phosphatase (38-126) U/L Troponin I < 0.012 (0.000-0.034) ng/mL Serum Total Protein (6.3-8.2) g/dL Albumin (3.5-5.0) g/dL Influenza Type A Ag NEGATIVE (NEGATIVE) Influenza Type B Ag NEGATIVE (NEGATIVE) RSV (PCR) NEGATIVE (Negative) 06/17/19 06/17/19 06/17/19 Range/Units 08:02 08:02 07:55 WBC 6.3 (4.0-10.5) K/mm3 RBC 4.25 (4.1-5.4) M/mm3 Hgb 12.9 (12.0-16.0) gm/dl Hct 39.9 (35-47) % MCV 93.9 (78-100) fl MCH 30.4 (26-32) pg MCHC 32.3 (32-36) g/dl RDW 13.2 (11.5-14.0) % Plt Count 221 (150-450) K/mm3 MPV 10.3 H (6-9.5) fl Gran % 59.8 (36.0-66.0) % Eos # (Auto) 0.23 (0-0.5) Absolute Lymphs (auto) 1.67 (1.0-4.6) Absolute Monos (auto) 0.63 (0.0-1.3) Lymphocytes % 26.4 (24.0-44.0) % Monocytes % 10.0 (0.0-12.0) % Eosinophils % 3.6 (0.00-5.0) % Basophils % 0.2 (0.0-0.4) % Absolute Granulocytes 3.79 (1.4-6.9) Basophils # 0.01 (0-0.4) D-Dimer (215-500) ng/mL Sodium 140 (137-145) mmol/L Potassium 3.7 (3.5-5.1) mmol/L Chloride 108 H (98-107) mmol/L Carbon Dioxide 24 (22-30) mmol/L Anion Gap 10.7 (5-15) MEQ/L BUN 12 (7-17) mg/dL Creatinine 0.66 (0.52-1.04) mg/dL Estimated GFR > 60.0 ML/MIN Glucose 110 H (74-106) mg/dL Lactic Acid 2.1 H (0.4-2.0) Calcium 9.1 (8.4-10.2) mg/dL Total Bilirubin 0.70 (0.2-1.3) mg/dL AST 19 (14-36) U/L ALT 23 (0-35) U/L Alkaline Phosphatase 69 (38-126) U/L Troponin I (0.000-0.034) ng/mL Serum Total Protein 6.1 L (6.3-8.2) g/dL Albumin 3.3 L (3.5-5.0) g/dL Influenza Type A Ag (NEGATIVE) Influenza Type B Ag (NEGATIVE) RSV (PCR) (Negative) - Progress Progress: improved Air Movement: good Blood Culture(s) Obtained: No Antibiotics given: Yes Counseled pt/family regarding: smoking cessation - Departure Departure Disposition: Home Clinical Impression: Bronchitis with bronchospasm Condition: Good Critical Care Time: No Referrals: DONI CABRERA [Primary Care Provider] - Instructions: Chronic Obstructive Pulmonary Disease Forms: Work/School Release Form Prescriptions: Albuterol 2.5 mg/3 ml Neb [Proventil 2.5 mg/3 ml Neb] 2.5 mg IH Q6H #100 neb Cephalexin Mh 500 mg [Keflex 500 mg] 500 mg PO QID 10 Days #40 capsule Prednisone 20 mg PO BID 5 Days #10 tablet
[2019-06-17] MEDS ORDERED: Sodium Chloride 0.9% 1000 ML 1,000 ML ONE (07:57)
[2019-06-17] MEDS ORDERED: solu-MEDROL 125 MG ONE (07:57)
[2019-06-17 08:07] LABS: Lactic Acid 2.1 (0.4-2.0)
[2019-06-17 08:10] LABS: Absolute Neutrophil Ct (ANC) 3.79 (1.4-6.9); BASOPHIL % 0.2 % (0.0-0.4); Basophil (Absolute #) 0.01 (0-0.4); Eosinophil % 3.6 % (0.00-5.0); Eosinophil (Absolute #) 0.23 (0-0.5); Hematocrit 39.9 % (35-47); Hemoglobin 12.9 gm/dl (12.0-16.0); Lymphocyte (Absolute #) 1.67 (1.0-4.6); Lymphocytes % 26.4 % (24.0-44.0); Mean Cell Volume 93.9 fl (78-100); Mean Corpuscular Hemoglobin 30.4 pg (26-32); Mean Corpuscular Hgb Concent. 32.3 g/dl (32-36); Mean Platelet Volume 10.3 fl (6-9.5); Monocyte (Absolute #) 0.63 (0.0-1.3); Neutrophil % 59.8 % (36.0-66.0); Platelet Count 221 K/mm3 (150-450); Red Blood Count 4.25 M/mm3 (4.1-5.4); Red Cell Distribution Width 13.2 % (11.5-14.0); White Blood Count 6.3 K/mm3 (4.0-10.5)
[2019-06-17 08:14] LABS: ALBUMIN 3.3 g/dL (3.5-5.0); ALKALINE PHOSPHATASE 69 U/L (38-126); ANION GAP 10.7 MEQ/L (5-15); BLOOD UREA NITROGEN 12 mg/dL (7-17); CHLORIDE 108 mmol/L (98-107); Calcium 9.1 mg/dL (8.4-10.2); Carbon Dioxide 24 mmol/L (22-30); Creatinine 1 0.66 mg/dL (0.52-1.04); Glucose 110 mg/dL (74-106); Potassium 3.7 mmol/L (3.5-5.1); SGOT/AST 19 U/L (14-36); SGPT/ALT 23 U/L (0-35); SODIUM 140 mmol/L (137-145); Total Protein 6.1 g/dL (6.3-8.2)
[2019-06-17] MEDS ORDERED: ROCEPHIN 1 Gm-D5w 50 ml Bag** 1 G/50 ML IVPB IV STA (08:29)
[2019-06-17] MEDS ORDERED: ROCEPHIN 1 Gm-D5w 50 ml Bag** 1 G/50 ML IVPB IV ONE (08:33)
[2019-06-17 08:40] LABS: INFLUENZA A NEGATIVE (NEGATIVE); INFLUENZA B NEGATIVE (NEGATIVE); RESPIRATORY SYNCTIAL VIRUS NEGATIVE (Negative)
[2019-06-17 09:15] VITALS: BP 145/82; PULSE 66
--- NOTE | 2019-06-17 09:24 | XRAY ---
Indication: Short of breath. Comparison: September 18, 2017. Portable apical lordotic chest again demonstrates normal heart and lungs with incidental tiny calcified granulomas. Bony thorax intact again with minimal degenerative changes and minimal scoliosis. No new/acute findings.
[2019-06-17 09:45] VITALS: O2SAT 100
== END 2019-06-17 10:02 | disposition home or self-care (01) ==
LOC: ED 07:38
DX: J40 Bronchitis, not specified as acute or chronic (principal)
CPT/HCPCS: 36000; 36415; 71045; 80053; 83605; 84484; 85025; 85379; 87631; 93005; 93041; 94150; 94640; 94760; 96365; 96374; 99284; J0696; J2930; A9270-GY

== ENCOUNTER 2020-07-25 21:26 | Emergency (ER) | payer OTHER ==
[2020-07-25] MEDS ORDERED: Cyclobenzaprine 10 MG PO ONE (21:41)
[2020-07-25 21:46] VITALS: BP 143/87; PULSE 83; O2SAT 100
--- NOTE | 2020-07-25 21:53 | ERPHSYRPT ---
- History of Present Illness Time Seen by Provider: 07/25/20 21:28 Source: patient Exam Limitations: no limitations Patient Subjective Stated Complaint: "I need relief from the pain. I saw my doctor but the pain won't go away." Triage Nursing Assessment: Patient reported being treated currently for carpel tunnel and arthritis in the left hand. Denied any injuries to the hand. Reported pain on the palmar surface described as stabbing and non-radiating. pain is constant without alleviating factors. Reported pain is worse with movement. Denied numbness/tingling to the area. Limited ROM d/t pain. Adequate strength. Pulses +2 bilateral radial pulses. no noted injuries. capillary refill <2 Physician History: Acute on chronic left wrist pain. Previous surgeries. Pain worsening over the past 24 to 48 hours. Patient does have a PCP and hand orthopedic surgery she sees. States that they told them to brace it. She comes in the emergency department because of increasing pain. She has no falls, trauma, fever, chills, COVID-19 symptoms. She has no redness, signs of sepsis, infected joint. States that she has been doing home arthritis medication and splinting. Allergies/Adverse Reactions: amoxicillin [From Augmentin] Allergy (Verified 07/25/20 21:32) clavulanic acid [From Augmentin] Allergy (Verified 07/25/20 21:32) hydrochlorothiazide Allergy (Verified 07/25/20 21:32) lisinopril Allergy (Verified 07/25/20 21:32) metronidazole [From Flagyl] Allergy (Verified 07/25/20 21:32) tetracycline Allergy (Verified 07/25/20 21:32) albuterol Adverse Reaction (Intermediate, Verified 07/25/20 21:32) headache Home Medications: Lisinopril 20 mg [Zestril 20 MG] 20 mg PO DAILY 11/29/16 [History] Piroxicam 1 tab PO DAILY 06/17/19 [History] Pravastatin Sodium 1 tab PO DAILY 07/25/20 [History] Hx Tetanus, Diphtheria Vaccination/Date Given: Yes Hx Influenza Vaccination/Date Given: Yes Hx Pneumococcal Vaccination/Date Given: No Travel Risk - International Travel Have you traveled outside of the country in past 3 weeks: No - Coronavirus Screening Are you exhibiting any of the following symptoms?: No Close contact with a COVID-19 positive Pt in past 14-21 Days: No - Review of Systems Constitutional: No Fever, No Chills Eyes: No Symptoms Ears, Nose, & Throat: No Symptoms Respiratory: No Cough, No Dyspnea Cardiac: No Chest Pain, No Edema, No Syncope Abdominal/Gastrointestinal: No Abdominal Pain, No Nausea, No Vomiting, No Diarrhea Genitourinary Symptoms: No Dysuria Musculoskeletal: Joint Pain, No Back Pain, No Neck Pain Skin: No Rash Neurological: No Dizziness, No Focal Weakness, No Sensory Changes Psychological: No Symptoms Endocrine: No Symptoms All Other Systems: Reviewed and Negative - Past Medical History Pertinent Past Medical History: Yes Neurological History: No Pertinent History ENT History: No Pertinent History Cardiac History: High Cholesterol, Hypertension Respiratory History: Sleep Apnea Endocrine Medical History: No Pertinent History Musculoskeletal History: Arthritis GI Medical History: GERD History: No Pertinent History Psycho-Social History: No Pertinent History Female Reproductive Disorders: No Pertinent History - Past Surgical History Past Surgical History: Yes Neuro Surgical History: No Pertinent History Cardiac: No Pertinent History Respiratory: No Pertinent History Gastrointestinal: No Pertinent History Genitourinary: No Pertinent History Musculoskeletal: Joint Replacement Female Surgical History: Section, Tubal Ligation Other Surgical History: uterine ablation, left knee replacement - Social History Smoking Status: Current every day smoker How long have you smoked: 25 Exposure to second hand smoke: No Drug Use: none Patient Lives Alone: No - Female History Hx Now: No - Nursing Vital Signs Nursing Vital Signs: Initial Vital Signs Pulse Rate 83 07/25/20 21:27 Respiratory Rate 16 07/25/20 21:27 Blood Pressure 143/87 07/25/20 21:27 O2 Sat by Pulse Oximetry 100 07/25/20 21:27 Pain Scale Pain Intensity 8 - Physical Exam General Appearance: no apparent distress, alert Eye Exam: PERRL/EOMI, eyes nml inspection Ears, Nose, Throat Exam: normal ENT inspection, TMs normal, pharynx normal, moist mucous membranes Neck Exam: normal inspection, non-tender, supple, full range of motion Respiratory Exam: normal breath sounds, lungs clear, No respiratory distress Cardiovascular Exam: regular rate/rhythm, normal heart sounds, normal peripheral pulses Gastrointestinal/Abdomen Exam: soft, normal bowel sounds, No tenderness, No mass Back Exam: normal inspection, normal range of motion, No CVA tenderness, No vertebral tenderness Extremity Exam: normal inspection, normal range of motion, pelvis stable Neurologic Exam: alert, oriented x 3, cooperative, normal mood/affect, nml cerebellar function, nml station & gait, sensation nml, No motor deficits Skin Exam: normal color, warm, dry, No rash Lymphatic Exam: No adenopathy SpO2: 100 Comments: 07/25/20 22:00 Left wrist tenderness to palpation. Previous scar in place. No obvious deformity, sensation intact, 2+ capillary refill, 2 point tactile discrimination intact. 5 out of 5 strength. Full range of motion without pain. Compartments are soft, nontender. Overlying skin shows no tenting, bruising, ecchymosis. - Course Nursing assessment & vital signs reviewed: Yes Ordered Tests: Medication Summary Discontinued Medications Generic Name Dose Route Start Last Admin Trade Name Freq PRN Reason Stop Dose Admin Cyclobenzaprine HCl 10 mg 07/25/20 21:41 07/25/20 21:56 Cyclobenzaprine 10 Mg PO 07/25/20 21:42 10 mg STAT ONE Administration Cyclobenzaprine HCl Confirm 07/25/20 21:56 Cyclobenzaprine 10 Mg Administered 07/25/20 21:57 Dose 10 mg .ROUTE .STK-MED ONE - Progress Progress: improved Progress Note: 07/25/20 22:00 Exam appears stable. We will give 1 dose of Flexeril here in the emergency department. Otherwise I recommend rest, ice, compression, elevation, continue Tylenol. Return here for new or changing symptoms. - Departure Departure Disposition: Home Clinical Impression: Left hand pain Condition: Stable Critical Care Time: No Referrals: DONI CABRERA [Primary Care Provider] - Instructions: Hand Pain (DC) Prescriptions: Cyclobenzaprine HCl 10 mg [Flexeril 10 MG] 10 mg PO TID #12 tablet
[2020-07-25] MEDS ORDERED: Cyclobenzaprine 10 MG ONE (21:56)
== END 2020-07-25 22:04 | disposition home or self-care (01) ==
LOC: ED 21:26
DX: M79.642 Pain in left hand (principal); M19.042 Primary osteoarthritis, left hand; G56.02 Carpal tunnel syndrome, left upper limb; M25.532 Pain in left wrist; I10 Essential (primary) hypertension; E78.00 Pure hypercholesterolemia, unspecified; G47.30 Sleep apnea, unspecified; F51.9 Sleep disorder not due to a substance or known physiological condition, unspecified; K21.9 Gastro-esophageal reflux disease without esophagitis
CPT/HCPCS: 99283; A9270-GY

== ENCOUNTER 2021-09-25 16:28 | Emergency (ER) | payer OTHER ==
--- NOTE | 2021-09-25 16:34 | ERPHSYRPT ---
- History of Present Illness Time Seen by Provider: 09/25/21 16:33 Source: patient Exam Limitations: no limitations Physician History: This is a 51-year-old overweight white female patient of Dr. Nain Cabrera who presents with 1 week history of right hip pain which intermittently radiates to the right knee. She denies any acute traumatic injury. She has tried resting the areas of pain. She is tried topical agents without much benefit. Patient has a history of arthritis. She has a history of elevated cholesterol, gastroesophageal reflux disease and hypertension. Method of Injury: other (No known injury) Quality: intermittent, aching Severity of Pain-Max: mild (To moderate) Severity of Pain-Current: mild (To moderate) Lower Extremities Pain: hip: right, knee: right Modifying Factors: Improves With: movement Associated Symptoms: none Allergies/Adverse Reactions: amoxicillin [From Augmentin] Allergy (Verified 09/25/21 16:51) clavulanic acid [From Augmentin] Allergy (Verified 09/25/21 16:51) hydrochlorothiazide Allergy (Verified 09/25/21 16:51) lisinopril Allergy (Verified 09/25/21 16:51) metronidazole [From Flagyl] Allergy (Verified 09/25/21 16:51) tetracycline Allergy (Verified 09/25/21 16:51) albuterol Adverse Reaction (Intermediate, Verified 09/25/21 16:51) headache Home Medications: Lisinopril 20 mg [Zestril 20 MG] 20 mg PO DAILY 11/29/16 [History] Piroxicam 1 tab PO DAILY 06/17/19 [History] Pravastatin Sodium 1 tab PO DAILY 07/25/20 [History] Aspirin EC 325 mg [Ecotrin 325 MG] 325 mg PO DAILY 09/25/21 [History] Black Cohosh Root Extract [Black Cohosh] 40 mg PO BID 09/25/21 [History] Omeprazole Magnesium [Prilosec Otc] 20 mg PO DAILY 09/25/21 [History] Topiramate 50 mg PO BID 09/25/21 [History] Hx Tetanus, Diphtheria Vaccination/Date Given: Yes Hx Influenza Vaccination/Date Given: Yes Hx Pneumococcal Vaccination/Date Given: No Travel Risk - International Travel Have you traveled outside of the country in past 3 weeks: No - Coronavirus Screening Are you exhibiting any of the following symptoms?: No Close contact with a COVID-19 positive Pt in past 14-21 Days: No - Review of Systems Constitutional: No Symptoms Eyes: No Symptoms Ears, Nose, & Throat: No Symptoms Respiratory: No Symptoms Cardiac: No Symptoms Abdominal/Gastrointestinal: No Symptoms Genitourinary Symptoms: No Symptoms Musculoskeletal: Joint Pain (Right hip and right knee) Skin: No Symptoms Neurological: No Symptoms Psychological: No Symptoms Endocrine: No Symptoms Hematologic/Lymphatic: No Symptoms Immunological/Allergic: No Symptoms All Other Systems: Reviewed and Negative - Past Medical History Pertinent Past Medical History: Yes Neurological History: No Pertinent History ENT History: No Pertinent History Cardiac History: High Cholesterol, Hypertension Respiratory History: Sleep Apnea Endocrine Medical History: No Pertinent History Musculoskeletal History: Arthritis GI Medical History: GERD History: No Pertinent History Psycho-Social History: No Pertinent History Female Reproductive Disorders: No Pertinent History - Past Surgical History Past Surgical History: Yes Neuro Surgical History: No Pertinent History Cardiac: No Pertinent History Respiratory: No Pertinent History Gastrointestinal: No Pertinent History Genitourinary: No Pertinent History Musculoskeletal: Joint Replacement Female Surgical History: Section, Tubal Ligation Other Surgical History: uterine ablation, left knee replacement - Social History Smoking Status: Current every day smoker How long have you smoked: 25 Exposure to second hand smoke: No Drug Use: none Patient Lives Alone: No - Nursing Vital Signs Nursing Vital Signs: Initial Vital Signs Temperature 97.6 F 09/25/21 16:40 Pulse Rate 72 09/25/21 16:40 Blood Pressure 166/93 09/25/21 16:40 O2 Sat by Pulse Oximetry 99 09/25/21 16:40 Pain Scale Pain Intensity 8 - Physical Exam General Appearance: no apparent distress, alert, anxiety, obese Eyes, Ears, Nose, Throat Exam: normal ENT inspection, moist mucous membranes Neck Exam: normal inspection, non-tender, supple, full range of motion Cardiovascular/Respiratory Exam: chest non-tender, no respiratory distress Gastrointestinal/Abdominal Exam: non-tender Back Exam: normal inspection, normal range of motion, No CVA tenderness, No maritza tebral tenderness Hips Exam: right: bone tenderness, left: non-tender, bilateral: normal inspection, normal range of motion, no evidence of injury Legs Exam: bilateral leg: non-tender, normal inspection, normal range of motion, no evidence of injury Knees Exam: right knee: bone tenderness, left knee: non-tender, bilateral knee: normal inspection, normal range of motion, no evidence of injury Ankle Exam: bilateral ankle: non-tender, normal inspection, normal range of motion, no evidence of injury Foot Exam: bilateral foot: non-tender, normal inspection, normal range of motion, no evidence of injury Neuro/Tendon Exam: normal sensation, normal motor functions, normal tendon functions, responds to pain Mental Status Exam: alert, oriented x 3, cooperative Skin Exam: normal color, warm, dry SpO2 Interpretation: normal O2 Delivery: Room Air - Course Nursing assessment & vital signs reviewed: Yes - Progress Progress: unchanged Progress Note: 09/25/21 17:28 This patient has not suffered any acute traumatic injury to the right hip of the right knee. I did offer her x-rays of these areas. However, she did state that she has an appointment to see her primary care provider on Tuesday09/29/2021 at 4 PM for evaluation. Together, the patient denied decided that no x-rays would be performed today and we would treat her pain with a steroid, muscle relaxant and 2 days of a narcotic pill. Counseled pt/family regarding: diagnosis, need for follow-up - Departure Departure Disposition: Home Clinical Impression: Right hip pain, Right knee pain Condition: Stable Critical Care Time: No Referrals: DONI CABRERA [Primary Care Provider] - Follow up/PCP as directed Additional Instructions: Hold the piroxicam medication. May restart after you complete the prednisone medication. Keep your appointment with your primary care provider on 09/29/2021 at 4 PM. Prescriptions: Hydrocodone/APAP 5/325 [[place] 5/325 mg] 1 each PO Q8H PRN PRN #6 tablet MDD 3 PRN Reason: Pain Prednisone 10 mg [Deltasone 10 mg] 10 mg PO TID #12 tablet Orphenadrine Citrate 100 mg [Norflex 100 MG Tablet] 100 mg PO BID #10 tab
[2021-09-25 16:51] VITALS: BP 166/93; PULSE 72; O2SAT 99
== END 2021-09-25 17:46 | disposition home or self-care (01) ==
LOC: ED 16:28
DX: M25.551 Pain in right hip (principal); M25.561 Pain in right knee; E78.5 Hyperlipidemia, unspecified; I10 Essential (primary) hypertension; K21.9 Gastro-esophageal reflux disease without esophagitis; Z72.0 Tobacco use; Z79.891 Long term (current) use of opiate analgesic; Z79.52 Long term (current) use of systemic steroids; Z79.899 Other long term (current) drug therapy
CPT/HCPCS: 99283